=== PATIENT | female | born 1965 | race Caucasian/White ===

== ENCOUNTER 2024-04-17 14:36 | Emergency (ER) | payer OTHER ==
[~2024-04-17] VITALS: Ht 162.6 cm; Wt 56.7 kg
[~2024-04-17 14:36] MED LIST: CARI350T PO; IBUP-1955 PO; klonopin; paxil
[2024-04-17 14:38] VITALS: O2SAT 97
[2024-04-17] MEDS ORDERED: LORAZEPAM 2 MG/1 ML VIAL ONE (16:16)
[2024-04-17] MEDS: LORAZEPAM 2 MG/1 ML VIAL IM ONE (16:20)
[2024-04-17] MEDS ORDERED: LORA0.5T48 PO (16:36)
[2024-04-17] MEDS ORDERED: AMLO-212 PO (16:36)
== END 2024-04-17 17:07 | disposition home or self-care (01) ==
LOC: ER 14:36
DX: F41.9 Anxiety disorder, unspecified (principal); I10 Essential (primary) hypertension; I25.10 Atherosclerotic heart disease of native coronary artery without angina pectoris; E78.5 Hyperlipidemia, unspecified; Z79.899 Other long term (current) drug therapy
CPT/HCPCS: 99283; 96372; J2060; A4606; A4663